=== PATIENT | male | born 1995 | race Caucasian/White ===

== ENCOUNTER 2021-10-03 23:07 | Emergency (ER) | payer BC ==
[~2021-10-03] VITALS: Ht 182.9 cm; Wt 108.9 kg
[2021-10-04] MEDS ORDERED: ALBU8HFA2 (00:04)
[2021-10-04] MEDS ORDERED: Albuterol S5 MG/1 ML INH (00:41)
== END 2021-10-04 00:47 | disposition home or self-care (01) ==
LOC: ER 23:07
DX: U07.1 COVID-19 (principal); J45.909 Unspecified asthma, uncomplicated; Z79.899 Other long term (current) drug therapy
CPT/HCPCS: J1885

== ENCOUNTER 2023-03-18 13:03 | Emergency (ER) | payer OTHER ==
[~2023-03-18] VITALS: Ht 182.9 cm; Wt 113.4 kg
[~2023-03-18 13:03] MED LIST: ALBU8HFA2; Albuterol S5 MG/1 ML INH
[2023-03-18] MEDS ORDERED: Ketorolac Tromethamine 30mg Vial IM ONE (15:15)
[2023-03-18] MEDS ORDERED: CRUTCH3 XX (15:31)
[2023-03-18 15:35] VITALS: BP 156/102
== END 2023-03-18 15:36 | disposition home or self-care (01) ==
LOC: ER 13:03
DX: S76.312A Strain of muscle, fascia and tendon of the posterior muscle group at thigh level, left thigh, initial encounter (principal); W18.30XA Fall on same level, unspecified, initial encounter; J45.909 Unspecified asthma, uncomplicated
CPT/HCPCS: 29505; 96372-59; 99283-25; J1885

== ENCOUNTER 2023-11-14 11:59 | Day surgery (SDC) | payer OTHER ==
[~2023-11-14] VITALS: Ht 182.9 cm; Wt 100.5 kg
[~2023-11-14 11:59] MED LIST changes: +ABILIFY MYCITE5 M2; +ACET500; +Acerola C500 MG; +B-12500 MC2; +CRUTCH3 XX; +Cymbalta20 MG; +DOC250; +FLUT1DIS2; +IRON FOLATE PL1 EACH; +LEVE500; +LOSA50; +Lactated Ringer's 1,000 ML IV ONE; +Lidocaine HCl 4% 5 ML SDA ONE; +MAGNESIUM OXID500 MG; +MELATONIN5 M5; +METO25ER; +MIRAPEX; +NITR.4SL; +OMEP20ER PO; +PRAM.125; +PRAV20 PO; +VITAMIN D5000 UNIT; +XARELTO20 MG PO
[2023-11-14] MEDS ORDERED: ONDA4 (12:17)
[2023-11-14] MEDS ORDERED: AMLO5 (12:17)
[2023-11-14] MEDS ORDERED: BUPR75 (12:17)
[2023-11-14] MEDS ORDERED: Lactated Ringer's 1,000 ML IV ONE (12:50)
[2023-11-14] MEDS ORDERED: propofoL 50 ML IV ONE ×2 (13:51→14:11)
[2023-11-14 15:21] VITALS: BP 107/61
== END 2023-11-14 15:10 | disposition home or self-care (01) ==
LOC: ORSCSDS 11:59
PROVIDERS: Specialist
PROC: 0DBE8ZX Excision of Large Intestine, Via Natural or Artificial Opening Endoscopic, Diagnostic (ICD-10-PCS; principal; 2023-11-14 13:15)
PROC: 0DB98ZX Excision of Duodenum, Via Natural or Artificial Opening Endoscopic, Diagnostic (ICD-10-PCS; principal; 2023-11-14 13:15)
PROC: 0DBN8ZX Excision of Sigmoid Colon, Via Natural or Artificial Opening Endoscopic, Diagnostic (ICD-10-PCS; principal; 2023-11-14 13:15)
PROC: 0DB78ZX Excision of Stomach, Pylorus, Via Natural or Artificial Opening Endoscopic, Diagnostic (ICD-10-PCS; principal; 2023-11-14 13:15)
DX: R19.4 Change in bowel habit (principal); R10.9 Unspecified abdominal pain; R11.2 Nausea with vomiting, unspecified; R10.13 Epigastric pain; D12.5 Benign neoplasm of sigmoid colon; K21.9 Gastro-esophageal reflux disease without esophagitis; K44.9 Diaphragmatic hernia without obstruction or gangrene; K29.80 Duodenitis without bleeding; K64.8 Other hemorrhoids; K57.30 Diverticulosis of large intestine without perforation or abscess without bleeding; I10 Essential (primary) hypertension; J45.909 Unspecified asthma, uncomplicated; F17.210 Nicotine dependence, cigarettes, uncomplicated; Q79.60 Ehlers-Danlos syndrome, unspecified; G47.33 Obstructive sleep apnea (adult) (pediatric); Z79.899 Other long term (current) drug therapy
CPT/HCPCS: 88305; 88342; J2001; J2704; J7120